=== PATIENT | female | born 1960 | race Two or more races ===

== ENCOUNTER 2019-08-14 18:42 | Emergency (ER) | payer SELFPAY ==
[~2019-08-14] VITALS: Ht 147.3 cm; Wt 65.8 kg
[2019-08-14 18:45] VITALS: Ht 147.3 cm; Wt 65.8 kg
[2019-08-14 22:15] VITALS: BP 121/78
== END 2019-08-15 08:27 | disposition home or self-care (01) ==
LOC: ED 18:42
DX: S43.004A Unspecified dislocation of right shoulder joint, initial encounter (principal); J45.909 Unspecified asthma, uncomplicated; X58.XXXA Exposure to other specified factors, initial encounter; Y93.89 Activity, other specified; Y92.89 Other specified places as the place of occurrence of the external cause; Y99.8 Other external cause status
CPT/HCPCS: J2704; J3010; Q0092